=== PATIENT | male | born 1990 | race Two or more races ===

== ENCOUNTER 2016-08-28 14:30 | Emergency (ER) | payer OTHER ==
[~2016-08-28] VITALS: Ht 71 cm; Wt 87.2 kg
[2016-08-28 14:50] VITALS: BP 120/68
[2016-08-28] MEDS ORDERED: FLUT9.9S NS (16:07)
[2016-08-28] MEDS ORDERED: DEXAMETHASONE SOD PHOS 4 MG/ML VIAL PO ONE (16:30)
[2016-08-28] MEDS ORDERED: NAPROXEN 500 MG TABLET PO ONE (16:30)
--- NOTE | 2016-08-28 18:46 | ED.ADGEN ---
Past History Past Medical History: No Pertinent History Past Surgical History: Appendectomy Alcohol Use: Occasionally Drug Use: None Adult General HPI HPI Patient is a 26-year-old man, who presents to the emergency department with a complaint of 2 days of sore throat, rhinorrhea, nasal congestion, frontal headache, and ear pain. Patient states he experiences some subjective fevers today, although he is afebrile in the emergency department. He has not taken any medication prior to coming to the ED. He denies any recent travel, any sick contacts or exposures. Denies any weakness, numbness, tingling, vision changes, rashes, swelling extremities, chest, difficulty breathing or swallowing. Review of Systems Review of Systems Constitutional: Denies fever or chills [] Eyes: Denies change in visual acuity, redness, or eye pain [] HENT: Nasal congestion and sore throat. Ear pain. Respiratory: Denies cough or shortness of breath [] Cardiovascular: No additional information not addressed in HPI [] GI: Denies abdominal pain, nausea, vomiting, bloody stools or diarrhea [] : Denies dysuria or hematuria [] Musculoskeletal: Denies back pain or joint pain [] Integument: Denies rash or skin lesions [] Neurologic: Denies focal weakness or sensory changes, complaining of headache. [ ] Endocrine: Denies polyuria or polydipsia [] Current Medications Current Medications Current Medications Medications (Trade) Dose Ordered Sig/Lupe Start Time Stop Time Status Last Admin Dose Admin Dexamethasone Sodium Phosphate (Decadron) 4 mg 1X ONCE 08/28/16 16:30 08/28/16 16:31 DC 08/28/16 16:22 4 MG Naproxen (Naprosyn) 500 mg 1X ONCE 08/28/16 16:30 08/28/16 16:31 DC 08/28/16 16:22 500 MG Allergies Allergies Allergies Coded Allergies Type Severity Reaction Last Updated Verified No Known Drug Allergies 08/28/16 No Physical Exam Physical Exam Constitutional: Well developed, well nourished, no acute distress, non-toxic appearance. [] HENT: Normocephalic, atraumatic, patient with a small amount of fluid behind bilateral ears, noted to have significant turbinate swelling with clear rhinorrhea, postnasal drip with mild erythema over the oropharynx, no exudate identified. No temporal tenderness, no maxillary sinus tenderness. Eyes: PERRLA, EOMI, conjunctiva normal, no discharge. [] Neck: Normal range of motion, no tenderness, supple, no stridor. [] Cardiovascular:Heart rate regular rhythm, no murmur, S1, S2, rubs or gallops. [] Lungs & Thorax: Bilateral breath sounds clear to auscultation, no wheezing, rhonchi, rales. No chest or crepitus or tenderness. [] Abdomen: Bowel sounds normal, soft, no tenderness, no rebound, rigidity, no guarding, no masses, no pulsatile masses. [] Skin: Warm, dry, no erythema, no rash. [] Back: No tenderness, no CVA tenderness. [] Extremities: No tenderness, no cyanosis, no clubbing, ROM intact, no edema. Negative Homans sign. [] Neurologic: Alert and oriented X 3, normal motor function, normal sensory function, no focal deficits noted. [] Psychologic: Affect normal, judgement normal, mood normal. [] Current Patient Data Vital Signs Vital Signs Date Time Temp Pulse Resp B/P (MAP) Pulse Ox O2 Delivery O2 Flow Rate FiO2 08/28/16 14:50 99.0 84 20 97 Room Air Lab Results Laboratory Tests Test 08/28/16 15:25 Group A Streptococcus Rapid Negative (NEGATIVE) EKG EKG Not indicated. [] Radiology/Procedures Radiology/Procedures Not indicated. Course & Med Decision Making Course & Med Decision Making Pertinent Labs and Imaging studies reviewed. (See chart for details) Patient's examination and history are consistent with a likely viral infection, patient does deny any history of seasonal allergies, however this may be tasha as well. Discussed with patient [id number] medications such as acetaminophen, eye Profen, naproxen for symptom management, importance of staying well-hydrated, and use of Flonase to decrease nasal congestion and allow improvement of the drainage of the ear canals. Patient voiced understanding and agreement. His strep swab was negative and the emergency department, he understands is no indication for antibiotics at this time. Patient given clear and detailed return instructions with which she voiced understanding and agreement, discharged home in stable condition with instructions and precautions as above, and prescription for Flonase. Final Impression Final Impression [] Problems: Dragon Disclaimer Dragon Disclaimer This electronic medical record was generated, in whole or in part, using a voice recognition dictation system. Departure: Impression: Primary Impression: Viral infection Disposition: 01 HOME, SELF-CARE Condition: IMPROVED Scripts Fluticasone Propionate (Flonase Allergy Relief) 9.9 Ml [place].susp 2 SPRAYS NS DAILY Y for CONGESTION, #1 BOTTLE Prov: DENZEL GUZMAN DO 08/28/16 DENZEL GUZMAN DO August 28, 2016 18:46
== END 2016-08-28 16:27 | disposition home or self-care (01) ==
LOC: ER 14:30
DX: B34.9 Viral infection, unspecified (principal); R51 Headache; H92.03 Otalgia, bilateral
CPT/HCPCS: 87070; 87880; 99283; J1100

== ENCOUNTER 2017-04-12 13:29 | Emergency (ER) | payer OTHER ==
[~2017-04-12] VITALS: Ht 180.3 cm; Wt 83.9 kg
[~2017-04-12 13:29] MED LIST: FLUT9.9S NS
[2017-04-12] MEDS ORDERED: IV NORMAL SALINE 1,000ML 1,000 ML IV ONE (14:00)
[2017-04-12 14:05] LABS: BASO % 0 % (0-3); EOS % 0 % (0-3); HEMATOCRIT 48.3 % (39.0-53.0); HEMOGLOBIN 16.7 g/dL (13.0-17.5); LYMPH # 0.3 x10^3/uL (1.0-4.8); LYMPH % 2 % (24-48); MEAN CORPUSCULAR HEMOGLOBIN 31 pg (25-35); MEAN CORPUSCULAR HGB CONC 35 g/dL (31-37); MEAN CORPUSCULAR VOLUME 89 fL (79-100); MONO # 0.4 x10^3/uL (0.0-1.1); MONO % 2 % (0-9); NEUT # 16.9 x10^3uL (1.8-7.7); NEUT % 96 % (31-73); PLATELET COUNT 278 x10^3/uL (140-400); RED CELL DISTRIBUTION WIDTH 13.6 % (11.5-14.5); WHITE BLOOD COUNT 17.6 x10^3/uL (4.0-11.0)
[2017-04-12] MEDS ORDERED: ONDANSETRON PF 4 MG/2 ML VIAL. IV ONE (14:15)
[2017-04-12 14:18] LABS: ALBUMIN 4.9 g/dL (3.4-5.0); ALBUMIN/GLOBULIN RATIO 1.6 (1.0-1.7); CALCIUM 9.7 mg/dL (8.5-10.1); CREATININE 1.2 mg/dL (0.7-1.3); GFR 73.2; TOTAL BILIRUBIN 0.7 mg/dL (0.2-1.0)
--- NOTE | 2017-04-12 14:21 | PHYS DOC ---
Past History Past Medical History: No Pertinent History Past Surgical History: Appendectomy Alcohol Use: Occasionally Drug Use: None Adult General Chief Complaint Chief Complaint: NAUSEA/VOMITING/DIARRHEA HPI HPI Patient is a 26 year old M who presents with diarrhea and vomiting that started this morning. Vincenzo states that early this morning he noticed loose watery stools that were followed by nausea and vomiting. He states that occasionally he has a sharp pain in his abdomen which lasts only seconds and is rare. Currently he denies pain. He denies any other associated symptoms. He denies any exacerbating or alleviating factors. Review of Systems Review of Systems Constitutional: Denies fever or chills [] Eyes: Denies change in visual acuity, redness, or eye pain [] HENT: Denies nasal congestion or sore throat [] Respiratory: Denies cough or shortness of breath [] Cardiovascular: No additional information not addressed in HPI [] GI: Negative except history of present illness : Denies dysuria or hematuria [] Musculoskeletal: Denies back pain or joint pain [] Integument: Denies rash or skin lesions [] Neurologic: Denies headache, focal weakness or sensory changes [] Endocrine: Denies polyuria or polydipsia [] All other systems were reviewed and found to be within normal limits, except as documented in this note. Family History Family History No pertinent family medical history was reported Current Medications Current Medications Current Medications Medications (Trade) Dose Ordered Sig/Lupe Start Time Stop Time Status Last Admin Dose Admin Ondansetron HCl (Zofran) 4 mg 1X ONCE 04/12/17 14:15 04/12/17 14:16 DC 04/12/17 14:11 4 MG Sodium Chloride 1,000 ml @ 1,000 mls/hr 1X ONCE 04/12/17 14:00 04/12/17 14:59 04/12/17 14:00 1,000 MLS/HR Allergies Allergies Allergies Coded Allergies Type Severity Reaction Last Updated Verified No Known Drug Allergies 08/28/16 No Physical Exam Physical Exam Constitutional: Well developed, well nourished, no acute distress, non-toxic appearance. [] HENT: Normocephalic, atraumatic, bilateral external ears normal, oropharynx moist, no oral exudates, nose normal. [] Eyes: PERRLA, EOMI, conjunctiva normal, no discharge. [] Neck: Normal range of motion, no tenderness, supple, no stridor. [] Cardiovascular:Heart rate regular rhythm, no murmur [] Lungs & Thorax: Bilateral breath sounds clear to auscultation [] Abdomen: Bowel sounds normal, soft, no tenderness, no masses, no pulsatile masses. [] Skin: Warm, dry, no erythema, no rash. [] Back: No tenderness, no CVA tenderness. [] Extremities: No tenderness, no cyanosis, no clubbing, ROM intact, no edema. [] Neurologic: Alert and oriented X 3, normal motor function, normal sensory function, no focal deficits noted. [] Psychologic: Affect normal, judgement normal, mood normal. [] Current Patient Data Vital Signs Vital Signs Date Time Temp Pulse Resp B/P (MAP) Pulse Ox O2 Delivery O2 Flow Rate FiO2 04/12/17 13:29 98.9 98 20 97 Room Air Lab Results Laboratory Tests Test 04/12/17 13:50 White Blood Count 17.6 x10^3/uL (4.0-11.0) H Red Blood Count 5.40 x10^6/uL (4.30-5.70) Hemoglobin 16.7 g/dL (13.0-17.5) Hematocrit 48.3 % (39.0-53.0) Mean Corpuscular Volume 89 fL (79-100) Mean Corpuscular Hemoglobin 31 pg (25-35) Mean Corpuscular Hemoglobin Concent 35 g/dL (31-37) Red Cell Distribution Width 13.6 % (11.5-14.5) Platelet Count 278 x10^3/uL (140-400) Neutrophils (%) (Auto) 96 % (31-73) H Lymphocytes (%) (Auto) 2 % (24-48) L Monocytes (%) (Auto) 2 % (0-9) Eosinophils (%) (Auto) 0 % (0-3) Basophils (%) (Auto) 0 % (0-3) Neutrophils # (Auto) 16.9 x10^3uL (1.8-7.7) H Lymphocytes # (Auto) 0.3 x10^3/uL (1.0-4.8) L Monocytes # (Auto) 0.4 x10^3/uL (0.0-1.1) Eosinophils # (Auto) 0.0 x10^3/uL (0.0-0.7) Basophils # (Auto) 0.0 x10^3/uL (0.0-0.2) Platelet Estimate Pending Sodium Level 142 mmol/L (136-145) Potassium Level 4.0 mmol/L (3.5-5.1) Chloride Level 102 mmol/L (98-107) Carbon Dioxide Level 30 mmol/L (21-32) Anion Gap 10 (6-14) Blood Urea Nitrogen 15 mg/dL (8-26) Creatinine 1.2 mg/dL (0.7-1.3) Estimated GFR (Cockcroft-Gault) 73.2 BUN/Creatinine Ratio 13 (6-20) Glucose Level 130 mg/dL (70-99) H Calcium Level 9.7 mg/dL (8.5-10.1) Total Bilirubin 0.7 mg/dL (0.2-1.0) Aspartate Amino Transferase (AST) 21 U/L (15-37) Alanine Aminotransferase (ALT) 33 U/L (16-63) Alkaline Phosphatase 85 U/L (46-116) Total Protein 8.0 g/dL (6.4-8.2) Albumin 4.9 g/dL (3.4-5.0) Albumin/Globulin Ratio 1.6 (1.0-1.7) Radiology/Procedures Radiology/Procedures Imaging was declined Course & Med Decision Making Course & Med Decision Making Pertinent Labs and Imaging studies reviewed. (See chart for details) [] Dragon Disclaimer Dragon Disclaimer This electronic medical record was generated, in whole or in part, using a voice recognition dictation system. Departure Departure: Impression: Primary Impression: Gastroenteritis Disposition: 01 HOME, SELF-CARE Condition: STABLE Referrals: PCP,NO (PCP) Patient Instructions: Viral Gastroenteritis Additional Instructions: Vincenzo was seen in the emergency department for diarrhea and vomiting. No emergency medical condition was found on history or physical exam. He did have normal labs with the exception of an elevated white blood cell count which is consistent with a gastroenteritis. He had no pain during his evaluation. His symptoms did improve with IV fluids and nausea medication. He was strongly advised to return to the emergency room as soon as possible if he develops new or worsening symptoms. He was also given a prescription for nausea medication. He is advised follow-up with his primary care doctor as needed for further management. Scripts Ondansetron (ZOFRAN ODT) 4 Mg Tab.rapdis 1 TAB SL Q8HRS, #15 TAB Prov: ALMA FULLER MD 04/12/17 ALMA FULLER MD Apr 12, 2017 14:21
[2017-04-12] MEDS ORDERED: ONDA4TAB10 SL (14:39)
[2017-04-12 14:51] VITALS: BP 118/60
[2017-04-12 14:55] LABS: % BANDS 15 % (0-9); % BASOS 0 % (0-3); % EOS 0 % (0-5); % LYMPHS 3 % (24-48); % MONOS 2 % (0-10); % SEGS 78 % (35-66); PLT ESTIMATE ADEQUATE (ADEQUATE)
== END 2017-04-12 15:00 | disposition home or self-care (01) ==
LOC: ER 13:29
DX: K52.9 Noninfective gastroenteritis and colitis, unspecified (principal)
CPT/HCPCS: 36415; 80053; 85007; 85025; 96361; 96374; 99284; J2405; J7030